=== PATIENT | female | born 1970 | race Two or more races ===

== ENCOUNTER 2018-09-09 23:13 | Emergency (ER) | payer OTHER ==
[~2018-09-09] VITALS: Ht 152.4 cm; Wt 80.0 kg
[2018-09-09 23:53] VITALS: BP 127/80
[2018-09-10 00:27] LABS: BASOPHILS # (AUTO) 0.03 x10^3/uL (0-0.1); BASOPHILS % (AUTO) 0 % (0-1); EOSINOPHILS # (AUTO) 0.09 x10^3/uL (0-0.4); EOSINOPHILS % (AUTO) 1 % (1-7); LYMPHOCYTES # (AUTO) 2.55 x10^3/uL (1-3.4); LYMPHOCYTES % (AUTO) 32 % (22-44); MD NO; MEAN CORPUSCULAR HEMOGLOBIN 30.3 pg (27.0-34.8); MEAN CORPUSCULAR HGB CONC 33.7 g/dL (32.4-35.8); MEAN PLATELET VOLUME 8.6 fL (7.4-10.4); MONOCYTES # (AUTO) 0.39 x10^3/uL (0.2-0.8); MONOCYTES % (AUTO) 5 % (2-9); NEUTROPHILS # (AUTO) 4.98 x10^3/uL (1.8-6.8); NEUTROPHILS % (AUTO) 62 % (42-75); PLATELET COUNT 281 x10^3/uL (130-400); RED BLOOD COUNT 4.48 x10^6/uL (3.82-5.3); RED CELL DISTRIBUTION WIDTH 14.1 % (9.6-15.2)
[2018-09-10] MEDS ORDERED: KETOROLAC 30 MG/1 ML IM ONE (00:30)
[2018-09-10] MEDS ORDERED: KETOROLAC 30 MG/1 ML ONE (00:35)
[2018-09-10 00:36] LABS: ALANINE AMINOTRANSFERASE 29 U/L (12-78); ALBUMIN 3.5 g/dL (3.4-5.0); ANION GAP 8 mmol/L (5-15); CALCIUM 8.5 mg/dL (8.5-10.1); CHLORIDE 109 mmol/L (98-107); CREATININE 0.84 mg/dL (0.55-1.02)
[2018-09-10 00:40] LABS: ALKALINE PHOSPHATASE 119 U/L (45-117); BILIRUBIN,TOTAL 0.3 mg/dL (0.2-1.0); TOTAL PROTEIN 8.1 g/dL (6.4-8.2); TROPONIN I < 0.015 ng/mL (0.000-0.045)
[2018-09-10 00:48] LABS: HCG UR SG 1.008 (1.003-1.030)
[2018-09-10] MEDS ORDERED: METHOCARBAMOL 500 MG TABLET PO ONE (01:30)
== END 2018-09-10 01:29 | disposition home or self-care (01) ==
LOC: ED 09-10 01:18
DX: R07.89 Other chest pain (principal); F17.210 Nicotine dependence, cigarettes, uncomplicated
CPT/HCPCS: 36415; 71046; 80053; 81025; 83690; 84484; 85025; 93005; 96372; 99285; J1885

== ENCOUNTER 2020-12-30 01:25 | Emergency (ER) | payer SELFPAY ==
[~2020-12-30] VITALS: Ht 154.9 cm; Wt 75.0 kg
--- NOTE | 2020-12-30 01:49 | NUR ---
student MD at bedside with patient. will come back to finish triage and assessment
--- NOTE | 2020-12-30 02:59 | NUR ---
patient back from [place]. calm and cooperative in bed in NAD. at bedside
--- NOTE | 2020-12-30 03:58 | NUR ---
patient resting in bed with at bedside. in NAD. VS remain stable on RA. call zhao in reach. updated patient on we are waiting for knee XR to result. safety maintained
--- NOTE | 2020-12-30 05:20 | NUR ---
discharge instructions reviewed with patient. no further questions. prescription handed to patient directly. steady gait to lobby. all personal belongings with patient on dc. no IV placed during this visit.
[2020-12-30 05:55] VITALS: BP 111/55
== END 2020-12-30 05:59 | disposition home or self-care (01) ==
LOC: ED 05:00
DX: M89.8X5 Other specified disorders of bone, thigh (principal); M25.562 Pain in left knee; M79.662 Pain in left lower leg; F17.200 Nicotine dependence, unspecified, uncomplicated
CPT/HCPCS: 99284